=== PATIENT | female | born 1955 | race Two or more races ===

== ENCOUNTER 2019-11-28 14:21 | Emergency (ER) | payer SELFPAY ==
[~2019-11-28] VITALS: Ht 149.9 cm; Wt 61.7 kg
--- NOTE | 2019-11-28 14:32 | NUR ---
PT BIB Daughter Nikita "slipped and fell hurt back/Left shoulder/arm" PT IS AAOX3, NOT IN RESPIRATORY DISTRESS, HOOKED TO MONITOR, KEPT RESTED AND COMFORTABLE, WILL CONTINUE TO MONITOR.
--- NOTE | 2019-11-28 14:45 | NUR ---
PT SEEN AND EXAMINED BY .
[2019-11-28] MEDS ORDERED: oxyCODONE/APAP (5/325 MG) 1 UDTAB TABLET PO ONE (15:00)
[2019-11-28] MEDS ORDERED: IBUPROFEN 600 MG TABLET PO ONE ×2 (15:00→15:10)
--- NOTE | 2019-11-28 15:00 | NUR ---
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
[2019-11-28] MEDS ORDERED: oxyCODONE/APAP (5/325 MG) 1 UDTAB TABLET ONE (15:09)
--- NOTE | 2019-11-28 15:15 | NUR ---
PT IS BACK FROM THE CT SCAN.
[2019-11-28] MEDS ORDERED: ONDANSETRON HCL/PF 4 MG/2 ML VIAL ONE (15:17)
[2019-11-28] MEDS ORDERED: MORPHINE SULFATE INJ 4 MG/ML DISP.SYRIN ONE (15:17)
[2019-11-28] MEDS ORDERED: KETOROLAC TROMETHAMINE INJ 30 MG/ML VIAL ONE (15:17)
[2019-11-28] MEDS ORDERED: MORPHINE SULFATE INJ 2 MG/ML DISP.SYRIN IV ONE (15:30)
[2019-11-28] MEDS ORDERED: ONDANSETRON HCL/PF 4 MG/2 ML VIAL IV ONE (15:30)
[2019-11-28] MEDS ORDERED: KETOROLAC TROMETHAMINE INJ 30 MG/ML VIAL IV ONE (15:30)
[2019-11-28 16:26] VITALS: BP 122/72
--- NOTE | 2019-11-28 16:26 | NUR ---
IV removed. Catheter intact and site benign. Pressure and 4x4 applied to site. No bleeding noted. Patient discharged to home in stable condition. Written and verbal after care instructions given. Patient verbalizes understanding of instruction.
== END 2019-11-28 16:26 | disposition home or self-care (01) ==
LOC: ER 14:21
DX: S42.292A Other displaced fracture of upper end of left humerus, initial encounter for closed fracture (principal); S00.03XA Contusion of scalp, initial encounter; R51 Headache; I10 Essential (primary) hypertension; W01.0XXA Fall on same level from slipping, tripping and stumbling without subsequent striking against object, initial encounter; Y93.89 Activity, other specified; Y92.89 Other specified places as the place of occurrence of the external cause; Y99.8 Other external cause status
CPT/HCPCS: 29105; 70450; 71045; 73030; 73200; 96374; 96375; 99285; J1885; J2270; J2405